=== PATIENT | female | born 1970 | race Caucasian/White ===

== ENCOUNTER 2017-07-15 11:17 | Emergency (ER) | payer OTHER ==
[2017-07-15 11:34] VITALS: BP 137/83
--- NOTE | 2017-07-15 12:49 | CR ---
Chest 2V INDICATION: dyspnea FINDINGS: Shallow inspiration. Elevation right hemidiaphragm. Bibasilar subsegmental atelectasis. The re may be a tiny right pleural effusion.
[2017-07-15] MEDS ORDERED: Furosemide 40 MG Tab PO ONE (12:55)
[2017-07-15] MEDS ORDERED: Furosemide 20 MG Tab PO ONE (12:56)
--- NOTE | 2017-07-15 13:07 | EDM.PDOC ---
ED HPI GENERAL MEDICAL PROBLEM - General Chief Complaint: Respiratory Problem Stated Complaint: SHORTNESS OF BREATH Time Seen by Provider: 07/15/17 11:45 Source of Information: Reports: Patient, Family History Limitations: Reports: No Limitations - History of Present Illness INITIAL COMMENTS - FREE TEXT/NARRATIVE: 47-year-old female who underwent an outpatient procedure in [place] for a "tummy tuck". This was done 2 days ago, she was discharged later in the day. Over the last 12 hours she feels she's become more short of breath, having difficulty taking a deep breath and feels uncomfortable. No fever, no productive sputum, her has albuterol and she tried an inhaler and it did not help. She is having some puffiness in her ankles. Onset: Gradual (Over the past 24 hours) Severity: Moderate Associated Symptoms: Reports: Cough, Shortness of Breath, Other (Mild chest pressure is present, centrally). Denies: Diaphoresis, Fever/Chills, Nausea/ Vomiting Middle Chest Pain Score (Numeric/FACES): 5 - Related Data Allergies Allergy/AdvReac Type Severity Reaction Status Date / Time codeine Allergy Abdominal Verified 07/15/17 11:31 Pain meperidine [From Demerol] Allergy Hives Verified 07/15/17 11:31 Penicillins Allergy Vaginitis Verified 07/15/17 11:31 Home Meds: Home Meds Diazepam [Valium] 2 mg PO Q8HR PRN 07/15/17 [History] Enoxaparin [Lovenox] 40 mg SUBCUT DAILY 07/15/17 [History] Hydrocodone/Acetaminophen [Hydrocodon-Acetaminophen 5-325] 1 each PO Q4HR PRN [History] Promethazine [Phenergan] 25 mg PO Q6H PRN 07/15/17 [History] Past Medical 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: - Infectious Disease History Infectious Disease History: Reports: Chicken Pox - Past Surgical History HEENT Surgical History: Reports: Tonsillectomy Female Surgical History: Reports: Tubal Ligation, Other (See Below) Other Female Surgeries/Procedures: lap for endometriosis and tubal reversal Musculoskeletal Surgical History: Reports: Arthroscopic Knee Dermatological Surgical History: Reports: Plastic Surgical Reconstruction/Repair Social & Family History - Tobacco Use Smoking Status *Q: Former Smoker Years of Tobacco use: 20 Packs/Tins Daily: 0.5 Used Tobacco, but Quit: Yes Month Tobacco Last Used: may, - Caffeine Use Caffeine Use: Reports: None - Recreational Drug Use Recreational Drug Use: No ED ROS GENERAL - Review of Systems Review Of Systems: See Below Constitutional: Reports: Malaise. Denies: Fever, Chills HEENT: Reports: No Symptoms Respiratory: Reports: Shortness of Breath, Cough. Denies: Sputum Cardiovascular: Reports: Chest Pain (Slight chest pressure) GI/Abdominal: Reports: Abdominal Pain (Postsurgical pain). Denies: Nausea Skin: Reports: No Symptoms Neurological: Denies: Dizziness, Headache ED EXAM, GENERAL - Physical Exam Exam: See Below Exam Limited By: No Limitations General Appearance: Alert, No Apparent Distress Eye Exam: Bilateral Eye: Normal Inspection Respiratory/Chest: No Respiratory Distress, Rales (Some basilar rales and decreased breath sounds in the right base otherwise clear, no wheezing) Cardiovascular: Regular Rate, Rhythm. No: Tachycardia GI/Abdominal: Other (Dressings are across the anterior abdomen, no drainage) Extremities: Pedal Edema (1+ symmetric ankle edema) Neurological: Alert, Oriented Psychiatric: Normal Affect, Normal Mood Skin Exam: Warm, Dry Course - Vital Signs Last Recorded V/S: Last Vital Signs Temp 98.4 F 07/15/17 11:32 Pulse 95 07/15/17 11:32 Resp 20 07/15/17 11:32 BP 137/83 07/15/17 11:32 Pulse Ox 90 L 07/15/17 11:32 - Orders/Labs/Meds Meds: Medications Discontinued Medications Generic Name Dose Route Start Last Admin Trade Name Justina PRN Reason Stop Dose Admin Furosemide 40 mg 07/15/17 12:55 07/15/17 13:01 Lasix PO 07/15/17 12:56 40 mg ONETIME ONE Administration Furosemide 20 mg 07/15/17 12:56 07/15/17 13:02 Lasix PO 07/15/17 12:57 20 mg ONETIME ONE Administration - Re-Assessments/Exams Free Text/Narrative Re-Assessment/Exam: 07/15/17 13:05 When concentrating on taking breaths her O2 saturations are in the low 90s, when at rest they do drift down into the 88-89% saturation area. She was sent back for a two-view chest x-ray which showed an elevated right hemidiaphragm and a small amount of vascular congestion, no pneumothorax or significant infiltrate. Also a small amount of bibasilar atelectasis. The patient was given 40 mg of Lasix, an additional 20 mg dose to take tomorrow, encouraged to increase her activity as tolerated and continue with incentive spirometry. She can return anytime if worsening. Departure - Departure Time of Disposition: 13:40 Disposition: Home, Self-Care 01 Condition: Good Clinical Impression: SOB (shortness of breath) Congestive heart failure Qualifiers: Congestive heart failure type: combined - Discharge Information Instructions: Shortness of Breath, [id number] Referrals: PCP,None [Primary Care Provider] - Forms: ED Department Discharge Care Plan Goals: Take the second dose of Lasix tomorrow morning, increase activity as tolerated and continue with incentive spirometry. Return anytime if worsening such as fever or increased shortness of breath or pain despite the treatment.
== END 2017-07-15 13:39 | disposition home or self-care (01) ==
LOC: JP.ED 11:17
DX: I50.9 Heart failure, unspecified (principal); J98.11 Atelectasis; Z98.51 Tubal ligation status; Z98.890 Other specified postprocedural states; Z87.891 Personal history of nicotine dependence; Z88.0 Allergy status to penicillin; Z88.5 Allergy status to narcotic agent; Z88.8 Allergy status to other drugs, medicaments and biological substances; Z79.899 Other long term (current) drug therapy
CPT/HCPCS: 71020; 99285; A9270

== ENCOUNTER 2019-06-15 06:04 | Day surgery (SDC) | payer BC, OTHER ==
[~2019-06-15 06:04] MED LIST: Acetaminophen 500 MG Tab PO ONE
[2019-06-15] MEDS ORDERED: Bupivacaine 0.5%/EPINEPHrine 1:200,000 50 ML MDV ONE (06:34)
[2019-06-15] MEDS ORDERED: Meropenem 500 MG SDV ONE (06:42)
[2019-06-15] MEDS ORDERED: Dextrose 5%-Lactated Ringers 1,000 ML IV SCH (07:00)
[2019-06-15] MEDS ORDERED: Glycopyrrolate 0.2 MG/ML 5 ML MDV ONE (07:03)
[2019-06-15] MEDS ORDERED: Ondansetron 4 MG/2 ML SDV ONE (07:03)
[2019-06-15] MEDS ORDERED: fentaNYL 250 MCG/5 ML SDV ONE (07:03)
[2019-06-15] MEDS ORDERED: Dexamethasone 4 MG/ML SDV ONE (07:03)
[2019-06-15] MEDS ORDERED: Neostigmine Methylsulfate 1 MG/ML 5 ML Syringe ONE (07:03)
[2019-06-15] MEDS ORDERED: Rocuronium 50 MG/5 ML Vial ONE (07:03)
[2019-06-15] MEDS ORDERED: Propofol 200 MG/20 ML SDV ONE (07:03)
[2019-06-15] MEDS ORDERED: ceFAZolin 2 GM in Sodium Chloride 0.9% 50 ML IV ONE (07:30)
[2019-06-15] MEDS ORDERED: Ketamine 500 MG/5 ML MDV IV SCH (07:45)
[2019-06-15] MEDS ORDERED: Ketorolac 60 MG/2 ML SDV ONE (08:18)
[2019-06-15] MEDS ORDERED: hydrOXYzine HCl 100 MG/2 ML SDV IM ONE (08:33)
[2019-06-15] MEDS ORDERED: HYDROmorphone 1 MG/ML Syringe IVPUSH ONE (08:56)
[2019-06-15] MEDS ORDERED: HYDROmorphone 2 MG Tab PO PRN (09:34)
[2019-06-15 10:58] VITALS: BP 133/73; PULSE 54
--- NOTE | 2019-06-18 13:26 | OR ---
DATE OF PROCEDURE: 06/15/2019 PREOPERATIVE DIAGNOSIS: Umbilical hernia. POSTOPERATIVE DIAGNOSES: 1. Incarcerated umbilical hernia. 2. Extensive intraabdominal adhesions. OPERATIVE PROCEDURES: Diagnostic laparoscopy with lysis of extensive intraabdominal adhesions and: 1. Repair of incarcerated umbilical hernia with mesh (20801). 2. Placement of Interceed mesh to limit pelvic and abdominal wall adhesions to underlying viscera (35086). ANESTHESIA: General. GROUND OPERATIONS SUPERINTENDENT: Stephany Mathis PA-C. INDICATIONS FOR PROCEDURE: This is a 49-year-old presenting with increasingly symptomatic umbilical hernia. Plan is to proceed with repair of this using a mesh technique. The laparoscopic approach possible need for open approach. Otherwise, potential risks of the procedure including bleeding, infection, injury to underlying viscera, problems with mesh becoming infected or the hernia recurring were all reviewed, and the patient wishes to proceed. DETAILS OF PROCEDURE: The patient was taken to the operating room and placed in a supine position. After general endotracheal anesthesia was induced, a Corbett catheter was inserted and the abdomen prepped and draped. In the left lateral abdomen, a transverse incision was made. The peritoneal cavity entered under direct vision with an Optiview trocar inflated to 15 mmHg with CO2. The laparoscope was then reinserted. No underlying trocar insertion site injuries were seen. Following this, a 5 mm trocar was placed in the left upper quadrant as well as left lower quadrant. A general exploration was undertaken. The patient was noted to have some fairly extensive adhesions between the omentum and some focal areas of small bowel on the anterior abdominal wall. These were taken down with a combination of cautery, Harmonic scalpel, and sharp dissection. At that point, the patient was noted to have an incarcerated omentum within the umbilical hernia sac which was divided away from the sac with Harmonic scalpel. The hernia sac was then excised as well. Following this, then a Ventralight ST mesh with the balloon positioning system with a 15 cm diameter was selected. The mesh was soaked in antibiotic-containing saline solution and then placed in intraperitoneal location. The balloon catheter was then pulled through a small stab wound around the inferior aspect of the umbilicus pulling the mesh upward in a position centered over the hernia site and the mesh was then fixed to the abdominal wall with absorbable tacking screws after the balloon had been inflated pushing the mesh up against the abdominal wall. Once this mesh was well fixed, the balloon catheter was deflated and the balloon removed. The mesh was confirmed to be adequately located and well fixed. The patient was felt to be at high risk for recurrent adhesion formation both between the mesh as well as the pelvic and abdominal lopez and the Interceed mesh was then placed underneath the mesh and then downwards toward the pelvis, and at that point, no further problems were noted. The trocars were removed and the peritoneal cavity deflated. The fascia at the 12 mm site was closed with 0 Vicryl stitch and the skin incision with 4-0 Vicryl skin stitch and dressing applied. Physician registered nurse first assistant, Stephany Mathis, played an essential role in assisting in this case helping to position the patient, retract structures as needed, as well as suturing and cutting sutures when indicated. Her presence improved patient safety and decreased the operative time. Jose Bradley MD /[id number]
== END 2019-06-15 11:30 | disposition home or self-care (01) ==
LOC: JP.SDS 06:04
PROVIDERS: ATTEND Surgery
DX: K42.0 Umbilical hernia with obstruction, without gangrene (principal); K66.0 Peritoneal adhesions (postprocedural) (postinfection); K21.9 Gastro-esophageal reflux disease without esophagitis; F17.210 Nicotine dependence, cigarettes, uncomplicated; E66.9 Obesity, unspecified; Z68.33 Body mass index [BMI] 33.0-33.9, adult; Z88.5 Allergy status to narcotic agent; Z88.0 Allergy status to penicillin
CPT/HCPCS: 36415; 49653; 80053; 83735; 84100; 85027; A9270; C1781; J0171; J0690; J1100; J1170; J1885; J2020; J2185; J2405; J2704; J2710; J2795; J3010; J3410; J3490; J7042; J7050; 88302

== ENCOUNTER 2022-03-16 11:01 | Emergency (ER) | payer BC ==
[2022-03-16 11:17] VITALS: BP 171/77; PULSE 68
[2022-03-16] MEDS ORDERED: Alum Hydrox/Mag Hydrox/Simeth 15 ML, Lidocaine 2% 15 ML PO ONE ×2 (11:29)
[2022-03-16 12:08] LABS: TROPONIN I HIGH SENSITIVITY 4.3 pg/mL (<=60.3)
== END 2022-03-16 13:02 | disposition home or self-care (01) ==
LOC: JP.ED 11:01
DX: K21.9 Gastro-esophageal reflux disease without esophagitis (principal); Z88.5 Allergy status to narcotic agent; Z88.0 Allergy status to penicillin; Z88.8 Allergy status to other drugs, medicaments and biological substances; Z72.0 Tobacco use
CPT/HCPCS: 36415; 80053; 83690; 84484; 85025; 93005; 93010; 99282; 99284-25

== ENCOUNTER 2022-03-30 08:06 | Day surgery (SDC) | payer BC ==
[~2022-03-30 08:06] MED LIST changes: -Acetaminophen 500 MG Tab PO ONE; +Midazolam 1 MG/ML 2 ML SDV ONE; +Propofol 200 MG/20 ML SDV ONE; +fentaNYL 100 MCG/2 ML SDV ONE
[2022-03-30] MEDS ORDERED: Dextrose 5%-Lactated Ringers 1,000 ML IV SCH (09:00)
[2022-03-30 10:34] VITALS: BP 112/67; PULSE 47
== END 2022-03-30 10:57 | disposition home or self-care (01) ==
LOC: JP.SDS 08:06
PROVIDERS: ATTEND Family Medicine
DX: Z12.11 Encounter for screening for malignant neoplasm of colon (principal); D12.5 Benign neoplasm of sigmoid colon; K21.9 Gastro-esophageal reflux disease without esophagitis; Z88.0 Allergy status to penicillin; Z88.6 Allergy status to analgesic agent; Z88.5 Allergy status to narcotic agent; F17.200 Nicotine dependence, unspecified, uncomplicated
CPT/HCPCS: 88305; J2250; J2704; J3010; J7121